=== PATIENT | female | born 1940 | race Caucasian/White ===

== ENCOUNTER 2023-08-06 13:02 | Emergency (ER) | payer OTHER, SELFPAY ==
[2023-08-06 13:03] VITALS: BP 136/80
--- NOTE | 2023-08-06 13:09 | ED.GENMED ---
History of Present Illness
General
Chief Complaint: Change in Mental Status
Time Seen by Provider: 08/06/23 13:09
Travel History
Have you had any contact with someone who has COVID-19?: No
Do you have any symptoms of coronavirus? Fever > 100 degrees, chills, cough, shortness of breath, sore throat, loss of taste or smell, muscle aches, or headache?: No
History of Present Illness
History of Present Illness:
HPI: Patient is here due to recurring falls and apparently was confused earlier. The patient lives at home. We are initially told the visit nurse found her on the floor today. The patient denies this. The patient has chronic back pain and takes
tramadol but declines analgesia at this time. She has no chest pain. She has no extremity weakness.
EXAM:
GENERAL: Well appearing in no distress
HEENT: Moist oral mucosa
CARDIOVASCULAR: No murmurs, normal heart rate and rhythm, No chest wall tenderness
PULMONARY: No respiratory distress, breath sounds are clear and equal
ABDOMEN: Soft with no peritoneal signs, no tenderness
NEUROLOGIC: Good strength all extremities, no coordination deficits
PSYCHIATRIC: Appropriate mental status, reasonable insight and judgement however at times she appears slightly confused, she knows it is August and knows she is at [facility]
EXTREMITIES: Nontender, no edema, moves all extremities equally
SKIN: No rash, no lesions
ED COURSE:
1:10 PM: I initially evaluated patient
NUMBER AND COMPLEXITY OF PROBLEMS ADDRESSED AT THE ENCOUNTER
� Chronic conditions affecting care: High blood pressure, hyperlipidemia, diabetes, hypothyroidism
� Acute Exacerbation and/or Progression of Chronic Illness: Falls are a recurring problem
� Differential Diagnosis includes: Hypoglycemia, hypothyroidism, electrolyte abnormality, intracranial hemorrhage
AMOUNT AND/OR COMPLEXITY OF DATA TO BE REVIEWED AND ANALYZED
� I performed an independent evaluation of and my interpretation is:
EKG: Sinus 101, left axis deviation, nonspecific ST abnormality, QTc 529 ms (on 06/21/2023 the QTc was 505 ms)
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
X-rays:
Laboratory Studies: White count 10.5, hemoglobin 12.7, potassium 3.3, sodium slightly low at 133, renal function normal
Other:
� Review of other/old records: The patient was admitted here with encephalopathy in June 2023
� Clinical information was obtained by an independent historian: I spoke to the daughter at bedside
� Prescriptions/Medications Considered but not given:
� Further testing considered but not performed:
RISK OF COMPLICATIONS AND/OR MORBIDITY OR MORTALITY OF PATIENT MANAGEMENT
� Social determinants of health affecting care: Lives at home but has visiting nurses
� Discussion with other providers:
� Escalation of care including admission/observation vs risk of discharge considered: Will check CT imaging of the brain as the patient has recurrent falls as there is also some concern for mental status change. Lab work
relatively unremarkable, potassium slightly low at 3.3, thyroid testing normal, CK normal. Since potassium and magnesium are low and she is somewhat weak will give oral replacement. The patient initially did not he want any testing done. No clear
indication to readmit to the hospital she was just here about a little over a month ago.
Past History
Past History
ED Past Medical History: HTN, Hypothyroidism, Psychiatric (anxiety), Other (Diverticulitis) and Other (Osteoarthritis)
ED Past Surgical History: Gynecological (hysterectomy) and Orthopedic (Lumbar nerve stim. right knee repleacement)
Phy Exam
Physical Exam
Physical Exam:
See HPI
Course
Orders/Labs/Results
Orders:
Orders
08/06/23 13:11
0.9% Sodium Chloride 1000 ml [Nss] 1,000 ml IV BOLUS
08/06/23 13:12
Electrocardiogram (*1) Urgent
Reason for Study: Syncope
EKG- Treatment ONCE
08/06/23 13:19
CT Head W/o Iv Contrast Urgent
Comment:
Reason For Exam: recurrent falls head injury
08/06/23 14:03
Basic Metabolic Panel Urgent
Complete Blood Count/With Diff Urgent
Magnesium Urgent
TSH Reflex To Free T4 Urgent
Total CK [Creatine Phosphokinase] Urgent
08/06/23 16:18
Potassium Chloride [KCl] 40 meq PO NOW STA
08/06/23 16:23
Magnesium Oxide 1,000 mg PO NOW STA
Abnormal Lab Results
08/06/23
14:03
RBC 3.88 L 10^6/uL
(4.20-5.40)
Hct 35.4 L %
(37.0-47.0)
MCH 32.7 H pg
(27.0-31.0)
Abs Immat Gran (auto) 0.1 H 10^3/uL
(0-0.05)
Absolute Neuts (auto) 7.3 H 10^3/uL
(1.4-6.5)
Absolute Monos (auto) 0.9 H 10^3/uL
(0.1-0.6)
Immature Gran % 0.6 H %
(0-0.5)
Lymphocytes % 20.0 L %
(20.5-51.1)
Sodium 133 L mmol/L
(135-145)
Potassium 3.3 L mmol/L
(3.5-5.1)
Glucose 164 H mg/dl
(70-99)
Magnesium 1.1 L mg/dl
(1.6-2.3)
08/06/23 14:03
08/06/23 14:03
Vital Signs
Initial and Last Documented VS:
Initial Vital Signs
Temp Pulse Resp BP Pulse Ox
97.7 F 129 18 136/80 99
08/06/23 13:03 08/06/23 13:03 08/06/23 13:03 08/06/23 13:03 08/06/23 13:03
Last Documented Vital Signs
Temp Pulse Resp BP Pulse Ox
97.7 F 129 18 136/80 99
08/06/23 13:03 08/06/23 13:03 08/06/23 13:03 08/06/23 13:03 08/06/23 13:03
*Critical Care Note
Total Time (30-74mins, 75-104mins- exclusive of procedures): Not Applicable
ED Attending Note
-
Portions of this chart may have been created with voice recognition software.� Occasional wrong word or��sound alike� substitutions may have occurred due to the inherent limitations of voice recognition software.
Discharge Plan
Departure
Patient Disposition: Home (Routine Discharge)
Date of Disposition: 08/06/23
Time of Disposition: 16:23
Patient with high blood pressure during this ER visit?: Yes
Discharge Problem:
Weakness
Instructions: Generalized Weakness
Prescriptions:
No Action
glipizide 10 mg Tablet
10 mg PO DAILY
metoprolol succinate 100 mg Tablet Extended Release 24 Hr
100 mg PO DAILY
levothyroxine 50 mcg Tablet
50 mcg PO DAILY AT 0700
olmesartan [Benicar] 20 mg Tablet
40 mg PO DAILY
metformin 500 mg Tablet Extended Release 24 Hr
1,000 mg PO BID
escitalopram oxalate [Lexapro] 10 mg Tablet
10 mg PO DAILY
tramadol 50 mg Tablet
25 mg PO Q6HPRN PRN (Reason: mod pain) Qty: 10 0RF
atorvastatin [Lipitor] 20 mg Tablet
20 mg PO DAILY
nortriptyline 50 mg Capsule
50 mg PO HS
alprazolam 0.5 mg tablet
0.5 mg PO HS
Referrals:
Miller Kilgore MD [Family Provider] -
Activity Restrictions/Additional Instructions:
Your potassium level is just slightly low at 3.3. We gave you dose of potassium. Your magnesium was also low and we gave you a dose of magnesium as well. I recommend that you follow with your primary care doctor. Other basic blood work was
relatively unremarkable. CAT scan of the brain showed an old stroke but nothing new including no bleeding in your brain.
Interventions
Interventions:
*Risk Screen - Suicide Last Done: 08/06/23 13:28
*General Assessment Last Done: 08/06/23 13:03
*Neglect/Abuse Screening Last Done: 08/06/23 13:28
*ED COVID-19 Vaccine History Last Done: 08/06/23 13:03
ED- Neurological Assessment Last Done: 08/06/23 13:28
ED Swallowing Screen Last Done: 08/06/23 14:48
[2023-08-06] MEDS: NSS 1000 IV (14:07)
[2023-08-06 14:13] LABS: % Basophils 0.5 % (0-2); % Eosinophils 1.5 % (0-6); % Immature Granulocytes 0.6 % (0-0.5); % Monocytes 8.4 % (1.7-9.3); Absolute Basophils 0.1 10^3/uL (0-0.2); Absolute Eosinophils 0.2 10^3/uL (0-0.7); Absolute Immature Granulocytes 0.1 10^3/uL (0-0.05); Absolute Lymphocytes 2.1 10^3/uL (1.2-3.4); Absolute Monocytes 0.9 10^3/uL (0.1-0.6); Absolute Neutrophils 7.3 10^3/uL (1.4-6.5); Hematocrit 35.4 % (37.0-47.0); Hemoglobin 12.7 g/dL (12.0-16.0); Mean Corp Hgb Conc. 35.9 g/dL (33.0-37.0); Mean Corpuscular Hgb 32.7 pg (27.0-31.0); Mean Corpuscular Volume 91.2 fL (81.0-99.0); Mean Platelet Volume 9.1 fL (7.4-10.4); Nucleated Red Blood Cells % 0 %; Platelet Count 338 10^3/uL (130-400); Red Blood Cell Count 3.88 10^6/uL (4.20-5.40); Red Cell Dist. Width 12.4 % (11.5-14.5); White Blood Cell Count 10.5 10^3/uL (4.8-10.8)
[2023-08-06 14:23] LABS: Blood Urea Nitrogen 12 mg/dl (7-17); Calcium 8.4 mg/dl (8.4-10.2); Carbon Dioxide 24 mmol/L (22-30); Chloride 99 mmol/L (98-107); Creatine Phosphokinase 90 U/L (30-135); Glucose 164 mg/dl (70-99); Magnesium 1.1 mg/dl (1.6-2.3); Potassium 3.3 mmol/L (3.5-5.1); Sodium 133 mmol/L (135-145); eGFR > 60.00
[2023-08-06 14:53] LABS: TSH Reflex To Free T4 3.55 uIU/ml (0.47-4.68)
[2023-08-06] MEDS: KCL 40 MEQ PO (16:28)
[2023-08-06] MEDS: MAGNESIUM OXIDE 1000 MG PO (16:28)
[2023-08-06 16:41] VITALS: BP 180/84
== END 2023-08-06 16:55 | disposition home or self-care (01) ==
LOC: EMR 13:02
PROVIDERS: EMERGENCY PHYSICIAN Emergency Medicine; FAMILY PHYSICIAN Internal Medicine
DX: R53.1 Weakness (principal); G89.29 Other chronic pain; E03.9 Hypothyroidism, unspecified; E11.9 Type 2 diabetes mellitus without complications; E78.5 Hyperlipidemia, unspecified; F41.9 Anxiety disorder, unspecified; I10 Essential (primary) hypertension; M19.90 Unspecified osteoarthritis, unspecified site; Z86.73 Personal history of transient ischemic attack (TIA), and cerebral infarction without residual deficits; Z90.710 Acquired absence of both cervix and uterus
CPT/HCPCS: 99284; 96360; 70450; 80048; 82550; 83735; 84443; 85025; 93005